=== PATIENT | male | born 1995 | race Caucasian/White ===

== ENCOUNTER → 2022-01-27 | Outpatient (CLI) | payer BC ==
[2022-01-27 09:14] LABS: ALBUMIN 4.6 g/dL (3.5-5.0); POTASSIUM 4.3 mmol/L (3.5-5.1)
[2022-01-27 09:15] LABS: CALCIUM 9.9 mg/dL (8.3-10.5)
[2022-01-27 09:19] LABS: TOTAL BILIRUBIN 1.5 mg/dL (0.2-1.2)
[2022-01-29 16:31] LABS: DIRECT BILIRUBIN 0.4 mg/dL (0.0-0.5)
== END ==
LOC: LAB 08:46
PROVIDERS: Family Medicine
DX: Z00.00 Encounter for general adult medical examination without abnormal findings (principal); Z13.1 Encounter for screening for diabetes mellitus; Z13.220 Encounter for screening for lipoid disorders

== ENCOUNTER → 2022-05-21 | Outpatient (CLI) | payer BC ==
[2022-05-22 17:29] LABS: FOLLICLE STIMULATING HORMONE 3.4 mIU/mL (1.0-12.0); PROLACTIN AMS 16.8 ng/mL (3.5-19.4)
== END ==
LOC: LAB 17:14
DX: I86.1 Scrotal varices (principal); N46.8 Other male infertility; R86.8 Other abnormal findings in specimens from male genital organs

== ENCOUNTER → 2022-07-11 | Outpatient (CLI) | payer BC ==
[2022-07-11 17:52] LABS: FOLLICLE STIMULATING HORMONE 12.6 mIU/mL (1.0-12.0)
== END ==
LOC: LAB 07:13
DX: I86.1 Scrotal varices (principal); R86.8 Other abnormal findings in specimens from male genital organs; N46.8 Other male infertility

== ENCOUNTER → 2023-05-14 | Outpatient (CLI) | payer BC ==
[2023-05-14 08:27] LABS: ALBUMIN 4.4 g/dL (3.5-5.0); POTASSIUM 4.1 mmol/L (3.5-5.1)
[2023-05-14 08:28] LABS: CALCIUM 9.4 mg/dL (8.3-10.5)
[2023-05-14 08:30] LABS: TOTAL PROTEIN 6.8 g/dL (6.4-8.3)
[2023-05-14 08:32] LABS: TOTAL BILIRUBIN 0.7 mg/dL (0.2-1.2)
== END ==
LOC: LAB 08:04
PROVIDERS: Family Medicine
DX: Z00.00 Encounter for general adult medical examination without abnormal findings (principal); Z23 Encounter for immunization; Z13.220 Encounter for screening for lipoid disorders; Z13.1 Encounter for screening for diabetes mellitus

== ENCOUNTER → 2024-03-09 | Outpatient (CLI) | payer BC ==
[2024-03-09 08:45] LABS: CALCIUM 9.7 mg/dL (8.3-10.5)
== END ==
LOC: LAB 08:14
PROVIDERS: Family Medicine
DX: Z13.220 Encounter for screening for lipoid disorders (principal); Z13.1 Encounter for screening for diabetes mellitus